=== PATIENT | female | born 1985 | race Caucasian/White ===

== ENCOUNTER 2018-02-28 01:46 | Emergency (ER) | payer OTHER ==
--- NOTE | 2018-02-28 01:48 | EDPHY ---
H & P Time Seen by Provider: 02/28/18 01:48 HPI/ROS: HPI CHIEF COMPLAINT: Possible allergic reaction to Bactrim HISTORY OF PRESENT ILLNESS: Very pleasant 32-year-old female, she recently burned the right side of her inner calf, saw her primary care doctor yesterday and started on Bactrim. She took a dose this evening and states shortly after taking the dose her tongue started feeling itchy in the top of her mouth, as well as her nose and cheeks. She has not developed any rash. Denies urticaria. Denies trouble breathing, denies chest pain or shortness of breath, denies nausea vomiting. She became concerned she may be having a reaction to the antibiotic. She decided to come to the emergency room. States she took this dose of Bactrim at 11:00 p.m.. Symptoms started around 11 30. It is now 215 in the morning. Past Medical History: Denies significant medical history Past Surgical History: Denies significant surgical history Social History: Denies daily use drugs alcohol tobacco. Family History: Noncontributory. ROS REVIEW OF SYSTEMS: A comprehensive 10 point review of systems is otherwise negative aside from elements mentioned in the history of present illness. Exam Constitutional appears well nontoxic .anxious, no acute distress triage nursing summary reviewed, vital signs reviewed, awake/alert. Eyes normal conjunctivae and sclera, EOMI, PERRLA. HENT oropharynx and posterior pharynx unremarkable, no swelling, no rash anywhere, normal inspection, atraumatic, moist mucus membranes, no epistaxis, neck supple/ no meningismus, no raccoon eyes. Respiratory clear to auscultation bilaterally, normal breath sounds, no respiratory distress, no wheezing. Cardiovascular rate normal, regular rhythm, no murmur, no edema, distal pulses normal. Gastrointestinal soft, non-tender, no rebound, no guarding, normal bowel sounds, no distension, no pulsatile mass. Genitourinary no CVA tenderness. Musculoskeletal no midline vertebral tenderness, full range of motion, no calf swelling, no tenderness of extremities, no meningismus, good pulses, neurovascularly intact. Skin right lower extremity medial calf there is a burn present that is older, some mild erythema around it. Otherwise no rash, no urticaria Neurologic awake, alert and oriented x 3, AAOx3, moves all 4 extremities equally, motor intact, sensory intact, CN II-XII intact, normal cerebellar, normal vision, normal speech. Psychiatric normal mood/affect. Heme/Lymph/Immune no lymphadenopathy. Differential Diagnosis: Includes but is not limited to in a particular order allergic reaction, reaction to Bactrim, anxiety Medical Decision Making: Plan for this patient oral Benadryl, oral prednisone, oral Pepcid. And re-evaluate watch for further signs of allergic reaction. Re-evaluation: 033: Patient here in emergency requesting discharge. No further signs of allergic reaction. She denies any trouble breathing, trouble swallowing, she would like to go home. She will stop taking the Bactrim however we discussed further treatment options for her burn with mild erythema around it, she would like to try doxycycline. I recommend taking this on a full stomach no empty stomach. Pepcid and Benadryl for the next 3 days. Additionally understands return emergency room if there is any worsening symptoms of allergic reaction or she has questions about her burn. Source: Patient Constitutional: Initial Vital Signs Temperature (C) 36.6 C 02/28/18 01:50 Heart Rate 78 02/28/18 01:50 Respiratory Rate 18 02/28/18 01:50 Blood Pressure 109/68 02/28/18 01:50 O2 Sat (%) 95 02/28/18 01:50 O2 Delivery Mode Room Air Allergies/Adverse Reactions: Penicillins Allergy (Severe, Verified 02/28/18 02:16) sulfamethoxazole [From Bactrim] Allergy (Mild, Verified 02/28/18 02:15) trimethoprim [From Bactrim] Allergy (Verified 02/28/18 02:13) Home Medications: Medication Instructions Recorded Doxycycline Hyclate 100 mg PO BID #20 capsule 02/28/18 Famotidine [Pepcid 20 MG (*)] 20 mg PO BID #6 tab 02/28/18 diphenhydrAMINE [Benadryl 25 MG 25 mg PO BID #6 tab 02/28/18 (*)] Medical Decision Making - Data Points Medications Given: Discontinued Medications Diphenhydramine HCl (Benadryl) 25 mg PO EDNOW ONE Stop: 02/28/18 02:10 Last Admin: 02/28/18 02:12 Dose: 25 mg Famotidine (Pepcid) 20 mg PO EDNOW ONE Stop: 02/28/18 02:10 Last Admin: 02/28/18 02:12 Dose: 20 mg Prednisone (Prednisone) 60 mg PO EDNOW ONE Stop: 02/28/18 02:10 Last Admin: 02/28/18 02:12 Dose: 60 mg Departure - Departure Disposition: Home, Routine, Self-Care Clinical Impression: Allergic reaction Qualifiers: Encounter type: initial encounter Qualified Code(s): T78.40XA - Allergy, unspecified, initial encounter Condition: Good Instructions: Urticaria (ED), Food Allergy (ED), Anaphylaxis (ED), General Allergic Reaction (ED) Additional Instructions: 1. I recommend that you stop taking the antibiotic. 2. Return emergency room if you have any worsening symptoms includes hives, trouble breathing, trouble swallowing. 3. Benadryl, Pepcid next three days Referrals: NONE *PRIMARY CARE P,. [Primary Care Provider] - As per Instructions Prescriptions: diphenhydrAMINE [Benadryl 25 MG (*)] 25 mg PO BID #6 tab Doxycycline Hyclate 100 mg PO BID #20 capsule Famotidine [Pepcid 20 MG (*)] 20 mg PO BID #6 tab
[2018-02-28] MEDS ORDERED: diphenhydrAMINE 25 MG CAP PO ONE (02:09)
[2018-02-28] MEDS ORDERED: predniSONE 20 MG TAB PO ONE (02:09)
[2018-02-28] MEDS ORDERED: FAMOTIDINE 20 MG TAB PO ONE (02:09)
[2018-02-28 02:37] VITALS: BP 106/66
== END 2018-02-28 03:41 | disposition home or self-care (01) ==
DX: L29.9 Pruritus, unspecified (principal); T36.8X5A Adverse effect of other systemic antibiotics, initial encounter
CPT/HCPCS: J7512